=== PATIENT | female | born 1985 | race American Indian/Alaskan Native ===

== ENCOUNTER 2018-07-03 11:34 | Emergency (ER) | payer MEDICAID, OTHER ==
[2018-07-03 12:15] VITALS: BP 133/88
== END 2018-07-03 15:55 | disposition left against medical advice (07) ==
LOC: ED 11:34
DX: M54.9 Dorsalgia, unspecified (principal); Z53.21 Procedure and treatment not carried out due to patient leaving prior to being seen by health care provider